=== PATIENT | male | born 1965 | race African-American/Black ===

== ENCOUNTER → 2016-09-07 | Outpatient (CLI) | payer OTHER ==
[~2016-09-07] VITALS: Ht 177.8 cm; Wt 115.7 kg
[~2016-09-07] MED LIST: ADALAT CC30 MG PO; BENICAR20 MG PO; BENICAR40 MG PO; FUROSEMIDE 40 M40 M1 PO; GLUCOPHAGE1000 MG PO; HYDROCODONE-AP1 EAC6 PO; IBUPROFEN 800800 M1 PO; KLOR-CON 1010 MEQ PO; LIPITOR20 MG PO; MOBIC15 MG PO; NORCO 7.5-3251 EACH PO; POTASSIUM20 PO; RELAFEN750 MG PO; TRICOR145 MG PO; WATER PILL PO; [UNRECOGNIZED DRUG - REMARK] PO
--- NOTE | ~2016-09-07 | HPC ---
[facility] [place] [address] [place] [address] PAIN MANAGEMENT CONSULTATION Name: DAVID KENNEDY Irving Room #: REG Jenae Roth#: [id number] Admission: 09/07/16 Attend Phys: Blayne Wooten DO Discharge: Date of : 67 Report #: [id number] THIS REPORT FOR: //name// CC: Rio Wooten HISTORY OF PRESENT ILLNESS: The patient is a very pleasant 51-year-old gentleman. He was prior seen in the pain clinic on 12/16/2015, diagnosed with symptomatic lumbar radiculopathy and treated for same. The patient was given a lumbar epidural injection at L5-S1 with a greater than 60% improvement of baseline pain. The patient had relief for several months. Notes pain began to recur low back, left hip and leg. He has some component of right leg pain as well. Describes aching, intermittent stiff sharp pain with occasional weakness in the left leg and occasional numbness. 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 Has some cervical stenosis as well. The patient presents to the pain clinic today noting pain 3 at a VAS but gets up to 10 with early everyday with activity. Standing and position change exacerbates pain. The patient has completed physical therapy and to his credit, he continues to do exercises daily. He is taking nonsteroidal anti-inflammatory medication (ibuprofen 800 mg b.i.d.) and using tumeric as another anti-inflammatory as well. Again, complaining of left hip pain and has some observable changes on this side. PHYSICAL EXAMINATION: Shows a fairly mendez 51-year-old gentleman, BMI is elevated at 36.6 kilograms per meter squared. Vital signs are stable as noted on the EMR. Has a grossly positive straight leg raise at 30 degrees on the left, left lower extremity extension and plantar flexion. Hip flexion strength about 3/5, he is better about 4/5 on the right. Pain is primarily posterior lateral thigh and lateral calf into the foot. It appears to be somewhat of an L5-S1 distribution. We again reviewed his diagnostic findings, quite dated from October of 2010, has a congenitally modest canal with a left paramedian disk extrusion at L5-S1, canals narrowed to 3.5 mm. L4-L5 notes canal narrowed to 5.9 mm, L3-L4 is narrowed to 6.2 mm. ASSESSMENT: Symptomatic lumbar radiculopathy secondary to spinal stenosis in a gentleman who had good incremental improvement with the injection, now 7 months ago, but symptoms are continuing. I talked about therapeutic options. Given observable weakness, paresthesia, ongoing symptoms and congenitally narrowed canal, I suggest patient follow up with a neurosurgeon. Given that his MRI is quite dated, I did order new MRI of [address] [address] PAIN MANAGEMENT CONSULTATION Name: MARCIADAVID Room #: REG [facility] Ira#: [id number] Admission: 09/07/16 Attend Phys: Blayne Wooten DO Discharge: Date of : 67 Report #: [id number] the lumbar spine. He is given contact information for Dr. Frank Mckeon and Dr. Jamin Quinones, and for Dr. Tao Patel at [facility] on the [place]. The patient's comorbidities include hypertension, dyslipidemia, non-insulin dependent diabetes and modest obesity with a BMI is 36.6 kilograms per meter square. PROCEDURE: Lumbar epidural injection under fluoroscopy. PROCEDURE NOTE: After both written and informed consent to include risk of spinal cord damage, increased pain, weakness and dural puncture, the patient was taken to the fluoroscopy suite, placed in the prone position. After sterile prep and drape, a skin wheal with lidocaine was raised. A 22-gauge epidural Tuohy needle was inserted in the midline at L5-S1 with good loss to resistance. Negative aspiration for cerebrospinal fluid or blood was noted. Then 1 mL of Omnipaque under biplanar fluoroscopy showed good spread within the epidural space. This was followed with 80 mg of triamcinolone plus 1 mL of 1.5% preservative-free Xylocaine, 0.5 mL Xylocaine was then injected to flush the needle; it was removed. The patient was monitored for an appropriate period of time and discharged in good and stable condition. <ELECTRONICALLY SIGNED> By: Blayne Wooten DO 09/11/16 1427 [id number] Blayne Wooten DO /nt
[2016-09-07 11:34] VITALS: BP 137/85
== END | disposition home or self-care (01) ==
LOC: PAIN 07:46
DX: M54.16 Radiculopathy, lumbar region (principal); Z68.36 Body mass index [BMI] 36.0-36.9, adult; M48.06 Spinal stenosis, lumbar region; I10 Essential (primary) hypertension; E78.5 Hyperlipidemia, unspecified; E11.9 Type 2 diabetes mellitus without complications; F17.200 Nicotine dependence, unspecified, uncomplicated

== ENCOUNTER → 2016-11-02 | Outpatient (CLI) | payer OTHER ==
[~2016-11-02] VITALS: Ht 177.8 cm; Wt 112.9 kg
[~2016-11-02] MED LIST changes: +TRAMADOL 50 MG50 MG PO
--- NOTE | ~2016-11-02 | HPC ---
[facility] [address] [place] [address] PAIN MANAGEMENT CONSULTATION Name: MARCIADAVID Irving Room #: REG CHINO Ira#: [id number] Admission: 11/02/16 Attend Phys: Blayne Wooten DO Discharge: Date of : 67 Report #: [id number] THIS REPORT FOR: //name// CC: Rio Wooten The patient is a very pleasant 51-year-old gentleman, prior seen in 2015 for symptomatic lumbar radiculopathy with excellent improvement of baseline pain. He returned in August (09/07/2016). Again, he had recurrence of pain in a left lumbar radicular pattern. Lumbar epidural injection at that time afforded 100% relief for about 6 weeks. The patient notes that he has been traveling a great deal over the past couple of weeks. He had acute onset of recurrence of pain with some numbness in the lateral and now a little bit anterior left lower leg. He has near complete absence of left dorsiflexion. No bowel or bladder continence changes noted. Modestly antalgic gait. Grossly positive straight leg raise on the left. Lumbar epidural injections are quite dated from December 2010. We did order a new MRI, some confusion regarding this, ultimately the patient was able to get the MRI scheduled 11/07/2016. Again, the old MRI had shown a fairly significant central narrowing at L4-L5 down about 5.9 mm; however, symptoms are a little more on the right-sided there. His clinical symptoms are more in the left L4 radicular pattern. He had neural foraminal narrowing at left side (L3-L4). Again, symptoms appear to be a little more in the L4-L5 pattern. ASSESSMENT: Symptomatic lumbar radiculopathy secondary to spinal stenosis. RECOMMENDATION: Today, we will proceed with epidural injection at L4-L5 today. Follow up after MRI for likely referral to neurosurgery. PROCEDURE: Lumbar epidural injection under fluoroscopy. PROCEDURE NOTE: After both written and informed consent to include risk of spinal cord damage, increased pain, weakness and dural puncture, the patient was taken to the fluoroscopy suite, placed in the prone position. After sterile prep and drape, a skin wheal with lidocaine was raised. A 22-gauge epidural Tuohy needle was inserted in the midline at L4-L5 with good loss to resistance. Negative aspiration for cerebrospinal fluid or blood was noted. Then 1 mL of Omnipaque under biplanar fluoroscopy showed good spread within the epidural space. This was followed with 80 mg of triamcinolone plus 1 mL of 1.5% preservative-free Xylocaine, 0.5 mL Xylocaine was then injected to flush the needle; it was removed. The patient was monitored for an appropriate period of time and discharged in good and stable condition. By: [id number] Blayne Wooten DO /nt
[2016-11-02 09:31] VITALS: BP 142/84
== END | disposition home or self-care (01) ==
LOC: PAIN 07:10
DX: M54.16 Radiculopathy, lumbar region (principal); M48.06 Spinal stenosis, lumbar region; F17.200 Nicotine dependence, unspecified, uncomplicated

== ENCOUNTER → 2016-11-07 | Outpatient (CLI) | payer OTHER | LOC: MRI 09:13 | DX: M48.06 Spinal stenosis, lumbar region (principal) ==

== ENCOUNTER → 2016-11-17 | Outpatient (CLI) | payer OTHER ==
[~2016-11-17] VITALS: Ht 177.8 cm; Wt 112.7 kg
--- NOTE | ~2016-11-17 | HPC ---
[facility] [place] [address] [place] [address] PAIN MANAGEMENT CONSULTATION Name: MARCIADAVID GRIFFITHS Irving Room #: REG Jenae Roth#: [id number] Admission: 11/17/16 Attend Phys: Blayne Wooten DO Discharge: Date of : 67 Report #: [id number] THIS REPORT FOR: //name// CC: Rio Wooten The patient is a very pleasant 51-year-old gentleman, ____ treated for symptomatic lumbar radiculopathy secondary to spinal stenosis off and on since 2011. He had a single injection in 2011, had 2 injections in 2012, no injections in 2013, a single injection in 2014, 2 epidural injections in 2015. He was seen 09/07/2016, given epidural injection for ongoing radicular pain. MRI was ordered. Given a second injection on 11/02/2016. He returns to pain clinic today, fortunately noting that the left leg pain has resolved, though he still has tingling in the left toes and foot and he is unfortunately having some weakness in that left side with anterior tibialis profoundly weak 1-2/5. This weakness is actually fairly recent, he had had some modest weakness before, but is becoming more dramatic. We reviewed the MRI, which was obtained 11/07/2016. He has congenitally narrowed canal throughout, but when compared to a prior 2010 MRI, there was worsening broad-based disk protrusions at L3-L4, L4-L5, and L5-S1 with multilevel spinal stenosis. L3-L4 notes canal narrowed to 6 mm with neural foraminal narrowing, greater on the left than the right. Similarly, L4-L5 has canal narrowed to 5 mm, though this shows right greater than left neural foraminal narrowing contralateral to the patient's primary left-sided pain. L5-S1 notes canal narrowed to 5 mm with mild left neural foraminal narrowing. PHYSICAL EXAMINATION: Otherwise, shows a 51-year-old gentleman, BMI is modestly elevated at 35.6 kg/m2. Blood pressure 120/79, pulse 76, and respirations 16. Rises from chair using armrest. There is a little bit of an antalgic gait, starting to develop a little bit drop foot "on the left side." Again, dorsiflexion is significantly impacted 1-2/5 strength, lower extremity extension is a little diminished as well on this side. ASSESSMENT: Symptomatic lumbar radiculopathy secondary to spinal stenosis as noted above. RECOMMENDATIONS: We will have the patient followup with neurosurgery for possible definitive intervention. We will refer to physical therapy for strengthening left leg. Continue tramadol and ibuprofen p.r.n. I will be happy to see the patient as needed if symptoms change in consideration for repeat epidural injection if indicated. Discharged in good and stable condition with contact information for Dr. Lopez [address] [address] PAIN MANAGEMENT CONSULTATION Name: MARCIADAVID Room #: REG CL Ira#: [id number] Admission: 11/17/16 Attend Phys: Blayne Wooten DO Discharge: Date of : 67 Report #: [id number] Griffin Huerta for consideration for definitive intervention if indicated. I will be happy to see the patient on an as needed basis. By: [id number] Blayne Wooten DO /nt
[2016-11-17 10:37] VITALS: BP 120/79
== END | disposition home or self-care (01) ==
LOC: PAIN 07:16
DX: M54.16 Radiculopathy, lumbar region (principal); Z68.35 Body mass index [BMI] 35.0-35.9, adult; F17.210 Nicotine dependence, cigarettes, uncomplicated

== ENCOUNTER → 2017-08-23 | Outpatient (CLI) | payer OTHER ==
[~2017-08-23] VITALS: Ht 177.8 cm; Wt 117.9 kg
--- NOTE | ~2017-08-23 | HPC ---
[facility] [place] [address] [place] [address] PAIN MANAGEMENT CONSULTATION Name: DAVID KENNEDY [id number] Admission: 08/23/17 Attend Phys: Blayne Wooten DO Discharge: Date of : 67 Report #: [id number] THIS REPORT FOR: //name// CC: Rio Wooten The patient is a very pleasant 52-year-old gentleman, prior seen nearly a year ago in 11/2016. He had ongoing radicular pain and concerningly developed acute left anterior tibialis weakness. The patient subsequently had a lumbar decompressive laminectomy performed on 02/02. He had aggressively worked with physical therapy. The left-sided drop foot was improving and back was getting better. He was doing exercises at the gym on a regular basis including lumbar extensions. Started to develop recurrence of new symptoms on the contralateral, right side. Notes that for the past several weeks, pain has become quite problematic to the point that he is rating his pain at 10 on a VAS. He is unable to participate in activities of daily living. Pain is exacerbated with standing, walking and bending. He has resumed taking ibuprofen and rare tramadol with nominal efficacy. He is developing subjective weakness in the right leg. Denies any other myelopathic symptoms. PHYSICAL EXAMINATION: Shows a 52-year-old gentleman, BMI is 37.3 kilograms per meter squared. Blood pressure 145/91, pulse 82, respirations 20. Alert and oriented to person, place and time, judged to be a reasonable historian. Upper extremity strength is preserved. Rises from chair using armrest. Moderately antalgic gait on the right side. Still has decreased left lower extremity extension. Has a grossly positive straight leg raise on the right with diminished right patellar reflex, equivocal right Achilles reflex. Skin integument is intact. There are no recent diagnostic studies available for evaluation at this time. ASSESSMENT: Symptomatic lumbar radiculopathy, acute exacerbation of right L4 radicular pain in a gentleman prior seen for left lumbar radicular symptoms, status post decompressive laminectomy in January with excellent resolution at that time. RECOMMENDATIONS: 1. Right L4-L5 transforaminal epidural injection today. 2. Continue ibuprofen 800 mg t.i.d. I have taken the liberty of renewing this prescription as well as tramadol p.r.n. pain. 3. I have taken the liberty of writing for an MRI with and without contrast of the lumbar spine. We will have the patient hold off for about 7-10 days on this diagnostic study. If the injection today affords very good relief, we will cancel the MRI. If he gets moderate relief or no relief, we would want to get an MRI to rule out any surgically correctable pathology. Thank you for allowing me to participate in the patient's care. [address] [address] PAIN MANAGEMENT CONSULTATION Name: DAVID KENNEDY Irving Room #: REG [facility] Ira#: [id number] Admission: 08/23/17 Attend Phys: Blayne Wooten DO Discharge: Date of : 67 Report #: [id number] PROCEDURE: Right L4-L5 transforaminal epidural injection under fluoroscopy. PROCEDURE NOTE: After both written and informed consent was obtained including risk of spinal cord damage, infection, increased pain and paralysis, the patient agreed to proceed. The patient was taken to the fluoroscopy suite, placed in a prone position with appropriate abdominal bolstering. After sterile prep with ChloraPrep and sterile drape, a skin wheal with 1% Xylocaine was raised. A 22 gauge 4-1/2 inch epidural Tuohy needle was inserted. From an oblique approach into the posterior-superior aspect of the right L4-L5 neural foramen with continuous pressure on the glass syringe plunger for loss of resistance. Glass syringe was filled with 2 cc of 0.1 Xylocaine. The glass loss of resistance syringe was removed. A low volume extension tubing was connected, negative aspiration was accomplished for cerebrospinal fluid or blood. 1 mL of Omnipaque was injected which showed spread both within the epidural space and laterally along the nerve root. This was followed with 80 mg of triamcinolone plus 1 mL of 1.5% preservative-free Xylocaine. Needle was partially withdrawn, 0.5 mL of Xylocaine was injected to clear the needle and the needle was removed. The area was cleansed, band-aid was applied. The patient was allowed to ambulate to the recovery room, discharged in good and stable condition. <ELECTRONICALLY SIGNED> By: Blayne Wooten DO 08/24/17 0829 [id number] Blayne Wooten DO /nt
[2017-08-23 14:15] VITALS: BP 145/91
== END | disposition home or self-care (01) ==
LOC: PAIN 08:39
DX: M54.16 Radiculopathy, lumbar region (principal); Z98.890 Other specified postprocedural states; Z68.37 Body mass index [BMI] 37.0-37.9, adult; Z79.899 Other long term (current) drug therapy; F17.210 Nicotine dependence, cigarettes, uncomplicated